=== PATIENT | male | born 1990 | race Caucasian/White ===

== ENCOUNTER 2017-03-18 23:17 | Emergency (ER) | payer SELFPAY ==
[2017-03-18 23:27] VITALS: BP 129/76; BMI 36.8
[2017-03-18] MEDS ORDERED: TORADOL 60 MG VIAL IM ONE (23:59)
--- NOTE | 2017-03-19 00:04 | DR.GENAD ---
HPI - PCP Primary Care Physician: NFD - Complaint/Symptoms Chief Complaint Doctors Comments: Patient states that his right foot is hurting very badly. 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 The plantar surface hurts to light pressure. He denies trauma. Chief Complaint:: SWOLLEN FOOT/FOOT PAIN - Source History Provided: Patient - Mode of Arrival Mode of Arrival: Ambulatory - Timing Onset of Chief Complaint: 03/17/17 PMH - PMH Past Medical History: No Past Surgical History: No - Family History History of Family Medical Conditions: No - Social History Does patient currently use any type of tobacco product: No Have you used tobacco products in the last 12 months: No Type of Tobacco Use: None Does any household member use tobacco: No Alcohol Use: None Do you use any recreational Drugs:: No Lives With: Family Lives Where: Home - infectious screening In the last 2 months have you had wt loss of >10#?: NO Have you had fever, night sweats or hemotysis?: No Have you traveled outside the country in the last 6 months?: No Isolation: Standard ROS - Review of Systems Constitutional: No Symptoms Reported Eyes: No Symptoms Reported ENTM: No Symptoms Reported Respiratoy: No Symptoms Reported Cardiovascular: No Symptoms Reported Gastrointestinal/Abdominal: No Symptoms Reported Genitourinary: No Symptoms Reported Neurological: No Symptoms Reported Musculoskeletal: No Symptoms Reported Integumentary: No Symptoms Reported Hematologic/Lymphatic: No Symptoms Reported Endocrine: No Symptoms Reported Psychiatric: No Symptoms Reported All Other Systems: Reviewed and Negative PE - Vital Signs Vitals: Temperature 97.8 F Pulse Rate 102 Respiratory Rate 20 Blood Pressure [Left Arm] 153/94 Blood Pressure 129/76 O2 Sat by Pulse Oximetry 96 - General Limitations: No Limitations General Appearance: Alert, In No Apparent Distress - Head Head Exam: Normal Inspection, Atraumatic - Eyes Eye exam: Normal Appearance, PERRL, EOMI - ENT ENT Exam: Normal Exam External Ear Exam: Normal External Inspection TM/Canal Exam: Bilateral Normal Nose Exam: Normal Nose Exam Mouth Exam: Normal Inspection Throat Exam: Normal Inspection - Neck Neck Exam: Normal Inspection - Chest Chest Inspection: Normal Inspection, Symmetric Chest Wall Rise - Respiratory Respiratory Exam: Normal Lung Sounds Bilat Respiratory Exam: Bilateral Clear to Auscultation - Cardiovascular Cardiovascular Exam: Regular Rate, Normal Rhythm - Abdominal Exam Abdominal Exam: Normal Inspection, Normal Bowel Sounds Abdominal Tenderness: negative: RUQ, RLQ, LUQ, LLQ, Epigastrium, Suprapubic, Diffuse, Mild, Moderate, Severe, Other - Extremities Extremities Exam: Normal Inspection, Full ROM - Back Back Exam: Normal Inspection, Full ROM - Neurologic Neurological Exam: Alert, Oriented X3, CN II-XII Intact - Psychiatric Psychiatric Exam: Normal Affect - Skin Skin Exam: Warm, Dry, Intact - Other Exam Other Exam: Right foot with tenderness to palpation of the sole. - Diagnosis Discharge Problem: Plantar fasciitis of right foot - Discharge Plan Condition: Stable - Follow ups/Referrals Follow ups/Referrals: NFD,None [Primary Care Provider] - 3 days - Instructions
[2017-03-19] MEDS ORDERED: TORADOL 60 MG VIAL ONE (00:06)
== END 2017-03-19 00:10 | disposition home or self-care (01) ==
LOC: ER 23:17
DX: M72.2 Plantar fascial fibromatosis (principal)
CPT/HCPCS: 96372; 99281; 99282; J1885

== ENCOUNTER 2017-05-02 18:02 | Emergency (ER) | payer SELFPAY ==
[2017-05-02 18:06] VITALS: BMI 35.6
[2017-05-02] MEDS ORDERED: NS 1000 ML 1,000 ML IV ONE (18:57)
[2017-05-02] MEDS ORDERED: ZOFRAN INJ 4 MG VIAL IVP ONE (18:57)
[2017-05-02] MEDS ORDERED: ZOFRAN INJ 4 MG VIAL ONE (18:58)
[2017-05-02] MEDS ORDERED: NS 1000 ML 1,000 ML ONE ×2 (18:58→20:24)
--- NOTE | 2017-05-02 19:03 | DR.GENAD ---
HPI - PCP Primary Care Physician: NONE - HPI Comment HPI Comment: PATIENT NOT HOLDING DOWN FOOD OR LIQUID. URINE OUT PUT IS DECREASE. - Complaint/Symptoms Chief Complaint Doctors Comments: N/V/D SINCE TUESDAY. DIARRHEA IMPROVING. NO FEVER. PATIENT IS WEAK AND DIZZY. Chief Complaint:: "I HAVE BEEN HAVING DIARRHEA, SWEATING AND FEELING WEAK SINCE TUESDAY." Self Treatment fo Chief Complaint: NONE - Nurses notes reviewed Nurses Notes Review: Yes - Source History Provided: Patient - Mode of Arrival Mode of Arrival: Ambulatory - Timing Onset of Chief Complaint: 04/29/17 Came on: Gradually - Duration Duration: Constant Duration: Days - Severity Severity: Moderate PMH - PMH Past Medical History: No Past Surgical History: No - Family History History of Family Medical Conditions: No - Social History Does patient currently use any type of tobacco product: No Have you used tobacco products in the last 12 months: No Type of Tobacco Use: None Does any household member use tobacco: No Alcohol Use: None Do you use any recreational Drugs:: No Lives With: Family Lives Where: Home - infectious screening In the last 2 months have you had wt loss of >10#?: NO Have you had fever, night sweats or hemotysis?: No Have you traveled outside the country in the last 6 months?: No Isolation: Standard ROS - Review of Systems Constitutional: Weakness, Fatigue, Loss of Appetite. negative: Chills, Fever Eyes: No Symptoms Reported ENTM: No Symptoms Reported Respiratoy: No Symptoms Reported Cardiovascular: No Symptoms Reported Gastrointestinal/Abdominal: Abdominal Pain, Diarrhea, Nausea, Vomiting Genitourinary: Other (DECREASE URINE OUTPUT.). negative: Dysuria, Frequency, Hematuria Neurological: Weakness, Dizziness. negative: Headache Musculoskeletal: Muscle Pain Integumentary: Dryness Hematologic/Lymphatic: No Symptoms Reported Endocrine: No Symptoms Reported All Other Systems: Reviewed and Negative PE - Vital Signs Vitals: Temperature 97.4 F Pulse Rate [Left] 83 Pulse Rate 105 Respiratory Rate 16 Blood Pressure [Left Arm] 128/64 Blood Pressure 142/73 O2 Sat by Pulse Oximetry 100 - General Limitations: No Limitations General Appearance: Alert - Head Head Exam: Normal Inspection - Eyes Eye exam: Normal Appearance - ENT ENT Exam: Normal External Ear Exam External Ear Exam: Normal External Inspection TM/Canal Exam: Bilateral Normal Nose Exam: Normal Nose Exam Mouth Exam: Normal Inspection Throat Exam: Normal Inspection - Neck Neck Exam: Trachea Midline - Chest Chest Inspection: Symmetric Chest Wall Rise - Respiratory Respiratory Exam: Normal Lung Sounds Bilat Respiratory Exam: Bilateral Clear to Auscultation - Cardiovascular Cardiovascular Exam: Regular Rate, Normal Rhythm, Normal Heart Sounds - Abdominal Exam Abdominal Exam: Normal Bowel Sounds, Soft, Tenderness Abdominal Tenderness: Diffuse, Moderate - Extremities Extremities Exam: Normal Inspection - Back Back Exam: Normal Inspection - Neurologic Neurological Exam: Alert, Oriented X3 - Psychiatric Psychiatric Exam: Anxious - Skin Skin Exam: Normal Color MDM - Additional Information Additional Information Obtained From: Family - Differential Diagnosis Differential Diagnosis: ABDOMINAL PAIN, GASTROENTERITIS, BOWEL OBTRUCTION, UTI, DIVERTICULITIS Course - Treatment Treatment: SEE ORDERS. IV FLUIDS, IV ZOFRAN IN ED. PO MEDS CIPRO, POTASSIUM AND FLAGYL IN ED. - Reevaluation 1st: Improved - Education/Counseling Education/Counseling: Patient, Family, Education Educated On: Treatment, Diagnosis, Needs for Follow Up ROR - Labs Reviewed Laboratory Results Reviewed?: Yes Result Diagrams: 05/02/17 19:07 05/02/17 19:07 Laboratory: 05/02/17 20:09 Stool - Final WBC 12.9 X10^3/uL (3.6-10.0) H 05/02/17 19:07 RBC 5.35 X10^6/uL (4.7-6.0) 05/02/17 19:07 Hgb 16.3 g/dL (13.5-18.0) 05/02/17 19:07 Hct 45.4 % (42.0-54.0) 05/02/17 19:07 MCV 84.9 fL (80.0-100.0) 05/02/17 19:07 MCH 30.4 pg (27.0-34.0) 05/02/17 19:07 MCHC 35.9 g/dL (33.0-35.0) H 05/02/17 19:07 RDW 13.3 % (11.6-16.5) 05/02/17 19:07 Plt Count 266 X10^3/uL (150.0-450.0) 05/02/17 19:07 Plt Count Comment Adequate (ADEQUATE) 05/02/17 19:07 MPV 7.5 fL (7.4-11.0) 05/02/17 19:07 Neut % (Auto) 76.3 % (42.0-75.0) H 05/02/17 19:07 Lymph % (Auto) 16.3 % (21.0-51.0) L 05/02/17 19:07 [place] % (Auto) 6.2 % (0.0-13.0) 05/02/17 19:07 Eos % (Auto) 0.8 % (0.9-2.9) L 05/02/17 19:07 Baso % (Auto) 0.4 % (0.2-1.0) 05/02/17 19:07 Neut # (Auto) 9.8 x10^3/uL (2.2-4.8) H 05/02/17 19:07 Lymph # (Auto) 2.1 X10^3/uL (1.3-2.9) 05/02/17 19:07 [place] # (Auto) 0.8 x10^3/uL (0.3-0.8) 05/02/17 19:07 Eos # (Auto) 0.1 x10^3/uL (0.0-0.2) 05/02/17 19:07 Baso # (Auto) 0.1 X10^3/uL (0.0-0.1) 05/02/17 19:07 Absolute Nucleated RBC 0.1 /100WBC 05/02/17 19:07 Plt Morphology Comment Normal (NORMAL) 05/02/17 19:07 RBC Morphology Normal (NORMAL) 05/02/17 19:07 Sodium 136 mmol/L (136-145) 05/02/17 19:07 Corrected Sodium 136 mmol/L (136-145) 05/02/17 19:07 Potassium 3.2 mmol/L (3.5-5.1) L 05/02/17 19:07 Chloride 98 mmol/L (98-107) 05/02/17 19:07 Carbon Dioxide 25.5 mmol/L (21-32) 05/02/17 19:07 BUN 17 mg/dL (7-18) 05/02/17 19:07 Creatinine 1.21 mg/dL (0.70-1.30) 05/02/17 19:07 Est GFR (MDRD) Af Amer > 60 (>60) 05/02/17 19:07 Est GFR (MDRD) Non-Af > 60 (>60) 05/02/17 19:07 Glucose 111 mg/dL (65-99) H 05/02/17 19:07 Calcium 8.7 mg/dL (8.5-10.1) 05/02/17 19:07 Corrected Calcium TNP 05/02/17 19:07 Total Bilirubin 0.60 mg/dL (0.2-1.0) 05/02/17 19:07 AST 30 Units/L (15-37) 05/02/17 19:07 ALT 31 Units/L (12-78) 05/02/17 19:07 Alkaline Phosphatase 87 Units/L (46-116) 05/02/17 19:07 Total Protein 8.2 g/dL (6.4-8.2) 05/02/17 19:07 Albumin 3.8 g/dL (3.4-5.0) 05/02/17 19:07 Globulin 4.4 g/dL (2.5-4.5) 05/02/17 19:07 Albumin/Globulin Ratio 0.9 Ratio (1.1-2.1) L 05/02/17 19:07 Amylase 28 Units/L (25-115) 05/02/17 19:07 Lipase 74 Units/L (73-393) 05/02/17 19:07 Specimen Type Clean catch urine 05/02/17 20:08 Urine Color Dark yellow (YELLOW) 05/02/17 20:08 Urine Appearance Clear (CLEAR) 05/02/17 20:08 Urine pH 6.0 (5.0 - 8.0) 05/02/17 20:08 Ur Specific Enigma 1.020 (1.000-1.030) 05/02/17 20:08 Urine Protein 2+ (NEGATIVE) 05/02/17 20:08 Urine Glucose (UA) Negative (NEGATIVE) 05/02/17 20:08 Urine Ketones Negative (NEGATIVE) 05/02/17 20:08 Urine Occult Blood Negative (NEGATIVE) 05/02/17 20:08 Urine Nitrite Negative (NEGATIVE) 05/02/17 20:08 Urine Bilirubin Negative (NEGATIVE) 05/02/17 20:08 Urine Urobilinogen Normal (NORMAL) 05/02/17 20:08 Ur Leukocyte Esterase 1+ (NEGATIVE) 05/02/17 20:08 Urine RBC None seen /HPF (NONE SEEN) 05/02/17 20:08 Urine WBC 0-1 /HPF (NONE SEEN) 05/02/17 20:08 Ur Squamous Epith Cells Negative /HPF (NEGATIVE) 05/02/17 20:08 Urine Bacteria Negative /HPF (NEGATIVE) 05/02/17 20:08 Ur Culture Indicated? No/not indicated 05/02/17 20:08 Stool Description 25g 05/02/17 20:09 Stool for White Cells Positive (NEGATIVE) A 05/02/17 20:08 Stl C. diff Tox B Gene Negative (NEGATIVE) 05/02/17 20:09 Stl C. diff [id number] Negative (NEGATIVE) 05/02/17 20:09 Cryptosporid parvum Ag Negative (NEGATIVE) 05/02/17 20:09 E. histolytica Antigen Negative (NEGATIVE) 05/02/17 20:09 Giardia lamblia Ag Negative (NEGATIVE) 05/02/17 20:09 - XRAY XRAY Interpreted by: Radiologist XRAY Findings: REPORT DISCUSS WITH PATIENT AND FAMILY. - Diagnosis Discharge Problem: Gastroenteritis, Dehydration, Hypokalemia Abdominal pain Qualifiers: Abdominal location: generalized Qualified Code(s): R10.84 - Generalized abdominal pain - Discharge Plan Disposition: 01 HOME, SELF-CARE Condition: Stable Prescriptions: Ciprofloxacin HCl [CIPRO 500 MG TAB *] 500 mg PO Q12H #20 tab Metronidazole [Flagyl Tab 500 mg] 500 mg PO TID #21 tab Ondansetron [Zofran ODT 8 mg] 8 mg PO Q8H PRN #12 tab PRN Reason: Nausea/Vomiting - Follow ups/Referrals Follow ups/Referrals: NFD,None [Primary Care Provider] - 2 days KARISSA FAGAN [STAFF PHYSICIAN] - 2 days - Instructions Instructions: Viral Gastroenteritis, Adult, [id number], Dehydration, Adult, [id number], Abdominal Pain, Adult, [id number], Colitis Additional Instructions: RETURN TO ED IF WORSE.
[2017-05-02 19:12] LABS: BASOPHILS # (AUTO) 0.1 X10^3/uL (0.0-0.1); BASOPHILS % (AUTO) 0.4 % (0.2-1.0); EOSINOPHILS # (AUTO) 0.1 x10^3/uL (0.0-0.2); EOSINOPHILS % (AUTO) 0.8 % (0.9-2.9); HEMATOCRIT 45.4 % (42.0-54.0); HEMOGLOBIN 16.3 g/dL (13.5-18.0); LYMPHOCYTES # (AUTO) 2.1 X10^3/uL (1.3-2.9); LYMPHOCYTES % (AUTO) 16.3 % (21.0-51.0); MEAN CORPUSCULAR HEMOGLOBIN 30.4 pg (27.0-34.0); MEAN CORPUSCULAR HGB CONC 35.9 g/dL (33.0-35.0); MEAN CORPUSCULAR VOLUME 84.9 fL (80.0-100.0); MEAN PLATELET VOLUME 7.5 fL (7.4-11.0); MONOCYTES # (AUTO) 0.8 x10^3/uL (0.3-0.8); MONOCYTES % (AUTO) 6.2 % (0.0-13.0); NEUTROPHILS # (AUTO) 9.8 x10^3/uL (2.2-4.8); NEUTROPHILS % (AUTO) 76.3 % (42.0-75.0); PLATELET COUNT 266 X10^3/uL (150.0-450.0); RED BLOOD COUNT 5.35 X10^6/uL (4.7-6.0); RED CELL DISTRIBUTION WIDTH 13.3 % (11.6-16.5); WHITE BLOOD COUNT 12.9 X10^3/uL (3.6-10.0)
[2017-05-02 19:24] LABS: BLOOD UREA NITROGEN 17 mg/dL (7-18); CARBON DIOXIDE 25.5 mmol/L (21-32); CHLORIDE 98 mmol/L (98-107); CREATININE 1.21 mg/dL (0.70-1.30); SODIUM 136 mmol/L (136-145); eGFR NON BLACK RACES > 60 (>60)
[2017-05-02 19:25] LABS: ALANINE AMINOTRANSFERASE 31 Units/L (12-78); ALBUMIN 3.8 g/dL (3.4-5.0); ALKALINE PHOSPHATASE 87 Units/L (46-116); AMYLASE 28 Units/L (25-115); ASPARTATE AMINO TRANSFERASE 30 Units/L (15-37); CALCIUM 8.7 mg/dL (8.5-10.1); COR NA(FOR HYPERGLY) 136 mmol/L (136-145); LIPASE 74 Units/L (73-393); TOTAL PROTEIN 8.2 g/dL (6.4-8.2); eGFR BLACK RACES > 60 (>60)
[2017-05-02 19:43] LABS: PLATELET MORPHOLOGY COMMENT NORMAL (NORMAL)
--- NOTE | 2017-05-02 19:50 | CT ---
HISTORY: Subacute abdominal pain, diarrhea, diaphoresis, weakness Study: CT abdomen and pelvis without contrast Comparison: October 09, 2015 Technique: Multiple axial images of the abdomen and pelvis were obtained from the lung bases to the pubic symphysis after/ without/ both prior to and after the administration of IV contrast. AEC was u tilized. Findings: The visualized portions of the lung bases are unremarkable. The liver, spleen, pancreas, kidneys, an d adrenal glands are unremarkable. The gallbladder is unremarkable in its CT appearance. No signific ant mesenteric or retroperitoneal lymphadenopathy can be observed. No free fluid or free air is seen within the abdomen. Exam is limited for evaluation of bowel wall thickening on this limited noncont rast exam, but there are portions of the colon which appear mildly thick walled especially along the descending colon which could be secondary to nondistention but with regions of fluid-filled colon not ed as well and which could reflect a mild infectious or inflammatory colitis and for which clinical c orrelation and follow-up recommended. The appendix is normal. The urinary bladder is grossly unremark able. The bony structures are grossly intact. IMPRESSION: Possible findings of mild infectious or inflammatory colitis but with limited evaluation on this nonc ontrast exam. Reported By:
[2017-05-02 20:19] LABS: BILIRUBIN,URINE NEGATIVE (NEGATIVE); BLOOD/HEMOGLOBIN,URINE NEGATIVE (NEGATIVE); GLUCOSE, URINE NEGATIVE (NEGATIVE); KETONES,URINE NEGATIVE (NEGATIVE); LEUKOCYTE ESTERASE ,URINE 1+ (NEGATIVE); NITRITES,URINE NEGATIVE (NEGATIVE); PROTEIN,URINE 2+ (NEGATIVE); UROBILINOGEN,URINE NORMAL (NORMAL)
[2017-05-02] MEDS: NS 1000 ML 1,000 ML IV ONE ×2 (20:26→20:27)
[2017-05-02 20:28] LABS: APPEARANCE,URINE CLEAR (CLEAR); COLOR,URINE DARK YELLOW (YELLOW); RBC,URINE NONE SEEN /HPF (NONE SEEN); SQUAMOUS EPITHELIAL CELL,UR NEGATIVE /HPF (NEGATIVE)
[2017-05-02 20:29] LABS: BACTERIA,URINE NEGATIVE /HPF (NEGATIVE)
[2017-05-02 20:31] LABS: STOOL FOR WBC POSITIVE (NEGATIVE)
[2017-05-02] MEDS ORDERED: CIPRO TAB 500 MG PO ONE ×2 (21:14→21:18)
[2017-05-02] MEDS ORDERED: FLAGYL TAB 250 MG PO ONE (21:19)
[2017-05-02 21:24] LABS: CRYPTOSPORIDIUM PARVUM ANTIGEN NEGATIVE (NEGATIVE); GIARDIA LAMBLIA ANTIGEN NEGATIVE (NEGATIVE)
[2017-05-02] MEDS ORDERED: K-LYTE EFFERVESCENT PO ONE (21:39)
[2017-05-02] MEDS ORDERED: K-LYTE EFFERVESCENT ONE (21:41)
[2017-05-02] MEDS ORDERED: FLAGYL TAB 500 MG PO SCH (22:00)
[2017-05-02 22:21] VITALS: BP 128/64
== END 2017-05-02 22:13 | disposition home or self-care (01) ==
LOC: ER 18:02
DX: K52.89 Other specified noninfective gastroenteritis and colitis (principal); E86.0 Dehydration; E87.6 Hypokalemia; A02.0 Salmonella enteritis
CPT/HCPCS: 36415; 74176; 80053; 81001; 82150; 83630; 83690; 85025; 87045; 87077; 87186; 87328; 87329; 87336; 87427; 87493; 87899; 96365; 96367; 96374; 99283; 99285; A4222; J2405